=== PATIENT | female | born 1995 | race Caucasian/White ===

== ENCOUNTER 2021-03-22 15:30 | Emergency (ER) | payer OTHER, MEDICAID, SELFPAY ==
[2021-03-22 15:40] VITALS: BP 143/80; PULSE 73; RESP 16; TEMP 36.7; O2SAT 98; BMI 25.8
--- NOTE | 2021-03-22 15:44 | DI.RAD.S_ITS ---
PROCEDURE: XR LUMBAR SPINE 2-3V INDICATIONS: lower back pain. Hx of herniated disk TECHNIQUE: 3 views of the lumbar spine were acquired. COMPARISON: None. FINDINGS: Bones: 5 [id number] vertebrae are present. There is normal bony alignment. No vertebral body compression fractures. No suspicious bony lesions. Soft tissues: Overlying bowel gas pattern is normal. No suspicious soft tissue calcifications. IMPRESSION: No fracture. No acute osseous lesion. If symptoms and/or clinical suspicion for pathology persists, evaluation with MRI should be considered for further assessment. Dictated by: Brittny Knight MD, PhD on 03/22/2021 at 15:58 Approved by: Brittny Knight MD, PhD on 03/22/2021 at 15:58
[2021-03-22 19:49] VITALS: BP 124/81; PULSE 62; O2SAT 100
--- NOTE | 2021-03-22 20:23 | ED_ITS ---
HPI - Back Pain/Injury General Chief Complaint: Back Pain/Injury Stated Complaint: Lower Back Pain, HX Slipped Disk Time Seen by Provider: 03/22/21 19:08 Source: patient Limitations: no limitations History of Present Illness HPI Narrative: 25-year-old female nonsmoker with history of lumbar injuries, disc problems and prior surgery presents with a chief complaint of right lower back pain upon waking yesterday. She states it is worse when she moves and improves with rest. She admits to some burning pain that radiates through her buttock and down her right leg. She denies any fever or chills and takes no blood thinners. She denies numbness, tingling or weakness. She has no footdrop. She denies any numbness in her groin and has no loss of control of bowel or bladder. She states this feels quite similar to prior episodes of sc iatica Related Data Previous Rx's Medication Instructions Recorded norethindrone acetate 1 mg-ethinyl 1 tab PO DAILY #63 tab 05/10/20 estradiol 20 mcg tablet (Microgestin) cyclobenzaprine 10 mg tablet 10 mg PO TID PRN #14 tab 03/22/21 ketorolac 10 mg tablet 10 mg PO Q6H PRN #14 tab 03/22/21 methylprednisolone 4 mg tablets in See Rx Instructions .ROUTE 03/22/21 a dose pack (Medrol (Frankie)) .COMPLEX #21 ea Allergies Allergy/AdvReac Type Severity Reaction Status Date / Time Penicillins AdvReac Intermediate Rash Verified 03/22/21 15:43 Review of Systems Review of Systems Narrative: GENERAL: Denies chills, fatigue, malaise, fever, sweats. HEENT: Denies sinus pain, ear pain, sore throat, difficulty swallowing, dizziness. RESPIRATORY: Denies dyspnea, cough, wheezing, hemoptysis, sputum. CARDIOVASCULAR: Denies chest pain, palpitations, orthopnea, edema, GASTROINTESTINAL: Denies nausea, vomiting, abdominal pain, diarrhea, constipation, melena. : Denies dysuria, frequency, incontinence, hematuria, urinary retention. MUSCULOSKELETAL: see HPI SKIN: Denies rash, skin lesions, or other NEUROLOGIC: See HP PSYCHIATRIC: No concerning psychosocial issues. 12 point review of systems is negative except for those stated above Patient History Medical History Conjunctivitis Encounter for wellness examination in adult (05/10/20) Fractures Low back pain Oral contraception initial prescription Oral contraceptive pill surveillance Surgical History Anesthesia History of knee surgery (~10/2013) History of spinal surgery (~02/2018) Social History Smoking Status: Never smoker second hand exposure: No alcohol intake: current (Varies) substance use type: does not use Smoking Status: Never smoker alcohol intake frequency: a few times a week Substance Use Type: does not use Exam Narrative Exam Narrative: GEN: AOx3 and in mild distress EYES: Pupils are equal, round, and reactive to light and accommodation. Extraoccular muscles are intact bilaterally. There is no subconjunctival hemorrhage or exudate. CHEST: Lungs are clear to auscultation bilaterally and free of wheezes, rales, or rhonchi. Heart rate is regular rhythm, there are no murmurs, clicks, rubs, or gallops. There is no chest wall tenderness. ABD: Abdomen is soft and nontender. There is no guarding or rebound. Bowel sounds are normal in all 4 quadrants. There is no mass or organomegaly. BACK: reagent tender but free of any obvious external abnormalities. Patient exam notes decreased range of motion and muscle spasm, but no CVA tenderness, or vertebral point tenderness. There are no symptoms of cauda equina such as saddle anesthesia, and decreased reflexes, decreased sensation or strength. EXT: Full painless ROM of all extremities with no loss of sensation or strength. SKIN: Warm, pink, and dry. No erythema or rash Initial Vital Signs Initial Vital Signs: Vital Signs Temperature 98.1 F 03/22/21 15:40 Pulse Rate 73 03/22/21 15:40 Respiratory Rate 16 03/22/21 15:40 Blood Pressure 143/80 H 03/22/21 15:40 Pulse Oximetry 98 03/22/21 15:40 Course Orders Ordered: Discontinued Medications Hydrocodone Bitart/Acetaminophen (Hydrocodone/Acet 5/325 Prepack) 1 bottle MISC SEEINSTR ONE Stop: 03/22/21 20:36 Last Admin: 03/22/21 20:39 Dose: 1 bottle Documented by: EREN Cyclobenzaprine HCl (Cyclobenzaprine 10 Mg Prepack) 1 bottle MISC SEEINSTR ONE Stop: 03/22/21 20:36 Last Admin: 03/22/21 20:39 Dose: 1 bottle Documented by: EREN Ketorolac Tromethamine (Ketorolac 30 Mg/Ml Vial) 30 mg IM NOW ONE Stop: 03/22/21 20:33 Last Admin: 03/22/21 20:39 Dose: 30 mg Documented by: EREN Prednisone (Prednisone 20 Mg Tablet) 40 mg PO NOW ONE Stop: 03/22/21 20:33 Last Admin: 03/22/21 20:39 Dose: 40 mg Documented by: EREN Vital Signs Vital signs: Vital Signs - 8 hr 03/22/21 19:49 03/22/21 20:47 Pulse Rate 62 78 Respiratory Rate 16 Blood Pressure 124/81 114/65 Pulse Oximetry 100 99 MDM - Back Pain/Injury MDM Narrative Medical decision making narrative: Multiple etiologies of back pain considered including; Epidural abscess, cauda equina, mass occupying lesion, and other considered but no evidence of neurological our emergency based on history and physical. Discharge Plan Departure Patient Disposition: Home Clinical Impression: Lumbar disc disease with radiculopathy Instructions: DI for Back Pain With Sciatica Activity Restrictions/Additional Instructions: *You have been diagnosed with [low back pain with radiculopathy. *What to do: *Please continue to take your regular medications as directed. [x ] New medication prescriptions sent to your pharmacy: [[facility] ] [ ] New medication written as a paper prescription [ ] No new medications given *Please follow up with your primary care provider in 2-3 days, call for an appointment. Let them know you were seen in the Emergency Department and that we ask that you be seen in follow up. We will electronically transmit a record of today's note if your PCP is in our system *If you do not have a primary care provider please contact the [facility] Resource line at [phone]. They will ask some questions about your medical history and help get you set up with a doctor in the community. *Return to Emergency Department if you should have any new, worsening or concerning symptoms, such as [fever greater than 101 F, shaking chills, worsening pain, persistent vomiting or other bothersome symptoms] Prescriptions: New cyclobenzaprine 10 mg tablet 10 mg PO TID PRN (Reason: muscle spasm) Qty: 14 RF: 0 ketorolac 10 mg tablet 10 mg PO Q6H PRN (Reason: pain) Qty: 14 RF: 0 methylprednisolone [Medrol (Frankie)] 4 mg tablets,dose pack See Rx Instructions .ROUTE .COMPLEX Qty: 21 RF: 0 No Action norethindrone ac-eth estradiol [Microgestin 08/08 ()] 1-20 mg-mcg tablet 1 tab PO DAILY Qty: 63 RF: 2 Referrals: Derrek Sheridan ARNP [Primary Care Provider] - Anmol Olea MD [Physician] -
[2021-03-22] MEDS: KETOROLAC 30 MG/ML VIAL IM (20:39)
[2021-03-22] MEDS: predniSONE 20 MG TABLET 40 MG PO (20:39)
[2021-03-22] MEDS: HYDROCODONE/ACET 5/325 PREPACK 1 BOTTLE MISC (20:39)
[2021-03-22] MEDS: CYCLOBENZAPRINE 10 MG PREPACK 1 BOTTLE MISC (20:39)
[2021-03-22 20:47] VITALS: BP 114/65; PULSE 78; RESP 16; O2SAT 99
== END 2021-03-22 20:48 | disposition home or self-care (01) ==
PROVIDERS: Emergency Provider Emergency Medicine; PCP Nurse Practitioner Family
DX: M51.16 Intervertebral disc disorders with radiculopathy, lumbar region (principal)
CPT/HCPCS: 72100; 96372; 99283; J1885